=== PATIENT | female | born 1950 | race Hispanic/Latino ===

== ENCOUNTER → 2021-02-06 | Outpatient (CLI) | payer MEDICARE | END | disposition home or self-care (01) | LOC: RAH 11:44 | PROVIDERS: ATTEND Internal Medicine | DX: M47.816 Spondylosis without myelopathy or radiculopathy, lumbar region (principal); M85.88 Other specified disorders of bone density and structure, other site; M51.36 Other intervertebral disc degeneration, lumbar region; M16.0 Bilateral primary osteoarthritis of hip | CPT/HCPCS: 72100; 73521 ==

== ENCOUNTER 2021-08-15 06:54 | Day surgery (SDC) | payer MEDICARE ==
[~2021-08-15] VITALS: Ht 149.9 cm; Wt 75.3 kg
[2021-08-15] VITALS (8 sets, daily range): BP systolic 97–148; BP diastolic 64–76
[~2021-08-15 06:54] MED LIST: 0.9%NACL 1000ML 1,000 ML IV ONE
[2021-08-15] MEDS ORDERED: ENAL5TAB17 PO (07:52)
[2021-08-15] MEDS ORDERED: AMLO-257 PO (07:52)
[2021-08-15] MEDS ORDERED: ROSU10TA28 PO (07:52)
[2021-08-15] MEDS ORDERED: PROPOFOL 10 MG/ML 20ML VIAL IV ONE (08:57)
== END 2021-08-15 10:05 | disposition home or self-care (01) ==
LOC: DAH 06:54 → ENDO 06:54
PROVIDERS: ATTEND Internal Medicine Gastroenterology
DX: R93.3 Abnormal findings on diagnostic imaging of other parts of digestive tract (principal); K86.89 Other specified diseases of pancreas; R12 Heartburn; E78.5 Hyperlipidemia, unspecified; I10 Essential (primary) hypertension; M19.90 Unspecified osteoarthritis, unspecified site; Z90.49 Acquired absence of other specified parts of digestive tract; Z98.890 Other specified postprocedural states; Z79.899 Other long term (current) drug therapy; Z20.822 Contact with and (suspected) exposure to COVID-19
CPT/HCPCS: 43242; 87635; A4215 ×3; A4216; A4221; A4222; A4223; A4606; A4620; A4657; A4663; C9803; J2704; J7030

== ENCOUNTER → 2022-04-05 | Outpatient (CLI) | payer MEDICARE ==
[~2022-04-05] MED LIST changes: -0.9%NACL 1000ML 1,000 ML IV ONE; +AMLO-257 PO; +ENAL5TAB17 PO; +ROSU10TA28 PO
== END | disposition home or self-care (01) ==
LOC: SHCH 10:43
PROVIDERS: ATTEND Internal Medicine Cardiovascular Disease
DX: I87.2 Venous insufficiency (chronic) (peripheral) (principal)
CPT/HCPCS: 93970